=== PATIENT | male | born 1970 | race Caucasian/White ===

== ENCOUNTER 2019-07-19 19:56 | Inpatient (IN) | payer SELFPAY ==
[~2019-07-19] VITALS: Ht 190.5 cm; Wt 136.1 kg
--- NOTE | ~2019-07-19 | HEMODYNAMI ---
PATIENT:NNAMDI JUSTIN MEDICAL RECORD: [id number] : 72 LOCATION:[facility] D.2117 ADMISSION DATE: 07/20/19 Generatedon:07/21/20199:29 Patient name: NNAMDI JUSTIN Patient #: [id number] SSN: [id number] : 1970 Date of study: 07/21/2019 Page: Of Hemodynamic Procedure Report Patient Data Patient Demographics Procedure consent was obtained First Name: NNAMDI Gender: Male Last Name: NHAN : 1970 Middle Initial: AURORA Age: 49 year(s) Patient #: [id number] Race: SSN: [id number] Additional ID: [id number] Contact details [address]: [address] [place] [address] State: [place] City: [place] Zip code: [address] Past Medical History Allergies Allergen Reaction Date Comments Reported Penicillins 07/21/2019 Admission Admission Data Admission Date: 07/20/2019 Admission Time: 12:51 Arrival Date: 07/21/2019 Arrival Time: 0:00 Room #: D.2117 Height (in.): 75 BSA: 2.61 (m2) Height (cm.): 190.5 BMI: 37.48 (kg/m2) Weight (lbs.): 299.83 Weight (kg.): 136 Lab Results Lab Result Date: 07/21/2019 Lab Result Time: 0:00 Biochemistry Name Units Result Min Max BUN mg/dl 24 --(----)-* 7 18 Creatinine mg/dl 1.2 --(---*)-- 0.6 1.3 eGFR ml/min 69 *-(----)-- 90 120 NONAFRICAN CBC Name Units Result Min Max Hematocrit % 44.6 --(*---)-- 42 54 Hemoglobin g/dl 15 --(-*--)-- 13.5 17.5 Procedure Procedure Types Cath Procedure Diagnostic Procedure LHC [facility] w/Coronaries Sedation Charges Moderate Sedation up to 30 minutes PCI Procedure Coronary Stent Coronary Stent Initial Hemochron ACT Test Procedure Description Procedure Date Procedure Date: 07/21/2019 Procedure Start Time: 8:51 Procedure End Time: 9:27 Procedure Staff Name Function Santiago Shi MD Performing Physician Sera Gayle RT Monitor Ashley Aguilar RT Monitor Lashay Perez RT Scrub Sheila Ortiz RN Nurse Hussain Abbott RT Kelp Cutter Procedure Data Cath Procedure Fluoroscopy Diagnostic fluoroscopy Total fluoroscopy Time: 9.4 time: 9.4 min min Diagnostic fluoroscopy Total fluoroscopy dose: dose: 1481 mGy 1481 mGy Contrast Material Contrast Material Type Amount (ml) Isovue 370 135 Entry Location Entry Primary Successful Side Size Upsize Upsize Entry Closure Mccord ccessful Closure Location (Fr) 1 (Fr) 2 (Fr) Remarks Device Remarks Radial Right 6 Fr Mechanical artery Short Compression Estimated blood loss: 10 ml Diagnostic catheters Device Type Used For End Catheter Placement DIAGNOSTIC [place] 110cm Procedure 5Fr catheter ([id number]) Procedure Complications No complications Procedure Medications Medication Administration Route Dosage Oxygen etCO2 Nasal cannula 2 l/min Lidocaine 2% added to field 20 Heparin Flush Bag added to field 2 bags (1000units/500ml NS) 0.9% NaCl I.V. 100 ml/hr Benadryl I.V. 50 mg Versed I.V. 2 mg Fentanyl I.V. 100 mcg Versed I.V. 2 mg Fentanyl I.V. 100 mcg Versed I.V. 2 mg Heparin Bolus I.V. 98576 units Versed I.V. 2 mg Plavix P.O. 300 mg Hemodynamics Rest BSA: 2.61 (m2) HGB: 15 (g/dl) O2 Consumption: Estimated: 327.69 (ml/min) O2 Cons umption indexed: Estimated:125.55 (ml/min/m) Heart Rate: 84 (bpm) Pressure Samples Time Site Value (mmHg) Purpose Heart Use Rate(bpm) 8:54 LV 147/49,23 Snapshot 112 8:54 AO 146/98(112) Pullback 79 8:54 LV 143/-4,1 Pullback 79 Gradients Valve Time Site 1 Site 2 Mean SEP/DFP Peak To Heart Use (mmHg) (sec/min) Peak Rate (mmHg) (bpm) Aortic 8:54 LV AO 0 5 0 79 143/-4,1 146/98(112) Calculations Valve P-P Mean Valve Index Valve Source Name Gradient Area Flow (cm2) Aortic 0 0 0 0 Snapshots Pre Cath Intra NCS Post Cath Vital Signs Time Heart Resp SPO2 etCO2 NIBP (mmHg) Rhythm Pain Sedation Rate (ipm) (%) (mmHg) Status Level (bpm) 8:00:42 78 14 94 22.6 Measuring NSR 0 (11) 10(A) , No pain 8:01:48 84 16 93 17.3 195/109(144) NSR 0 (11) 10(A) , No pain 8:06:36 86 19 93 30.8 183/102(141) NSR 0 (11) 10(A) , No pain 8:11:21 84 20 94 33.1 189/110(127) NSR 0 (11) 10(A) , No pain 8:16:08 82 19 94 35.3 181/106(126) NSR 0 (11) 10(A) , No pain 8:20:46 84 13 92 20.3 183/94(137) NSR 0 (11) 10(A) , No pain 8:25:25 80 17 93 40.6 167/97(128) NSR 0 (11) 10(A) , No pain 8:30:01 80 17 94 38.4 175/91(130) NSR 0 (11) 10(A) , No pain 8:34:42 77 19 93 30.8 178/94(130) NSR 0 (11) 10(A) , No pain 8:39:23 87 21 94 13.5 167/97(135) NSR 0 (11) 10(A) , No pain 8:45:09 78 19 92 37.6 163/79(91) NSR 0 (11) 10(A) , No pain 8:49:43 81 11 93 39.9 158/99(129) NSR 0 (11) 10(A) , No pain 8:54:14 82 17 96 32.4 151/94(123) NSR 0 (11) 10(A) , No pain 8:58:42 84 18 94 30.1 146/95(124) NSR 0 (11) 10(A) , No pain 9:03:08 87 13 95 45.2 154/92(128) NSR 0 (11) 10(A) , No pain 9:07:37 86 17 94 30.1 169/104(124) NSR 0 (11) 10(A) , No pain 9:12:13 84 16 94 27.8 158/93(116) NSR 0 (11) 10(A) , No pain 9:16:45 89 26 95 30.1 164/95(115) NSR 0 (11) 10(A) , No pain 9:21:20 82 26 95 31.6 182/104(130) NSR 0 (11) 10(A) , No pain 9:26:02 81 15 95 33.9 176/100(124) NSR 0 (11) 10(A) , No pain Medications Time Medication Route Dose Verified Delivered Reason Notes Effectiveness by by 8:00:34 Benadryl I.V. 50 mg Santiago Buffie used for for Jose Guadalupe Ortiz RN procedure preop. 8:03:12 Oxygen etCO2 2 Santiago Buffie used for Nasal l/min Jose Guadalupe Ortiz RN procedure cannula 8:03:21 Lidocaine 2% added 20ml Santiago Santiago for local to vial Jose Guadalupe Shi MD anesthetic field 8:03:26 Heparin Flush added 2 bags Santiago Santiago used for Bag to Jose Guadalupe hSi MD procedure (1000units/500ml field NS) 8:03:34 0.9% NaCl I.V. 100 Santiago Buffie Per physician ml/hr Jose Guadalupe Ortiz RN 8:46:12 Versed I.V. 2 mg Santiago Buffie for sedation Jose Guadalupe Ortiz RN 8:46:20 Fentanyl I.V. 100 Santiago Buffie for sedation mcg Jose Guadalupe Ortiz RN 8:51:21 Versed I.V. 2 mg Santiago Buffie for sedation Jose Guadalupe Ortiz RN 8:51:25 Fentanyl I.V. 100 Santiago Buffie for sedation mcg Jose Guadalupe Ortiz RN 8:55:25 Versed I.V. 2 mg Santiago Buffie for sedation Jose Guadalupe Ortiz RN 9:00:42 Heparin Bolus I.V. 10,000 Santiago Buffie for verif ied units Jose Guadalupe Ortiz RN anticoagulation with dr shi 9:16:34 Versed I.V. 2 mg Santiago Buffie for sedation Jose Guadalupe Ortiz RN 9:22:31 Plavix P.O. 300 mg Santiago Ortiz RN antiplatelet therapy Procedure Log Time Note 18:40:47 DELAY DUE TO ASIST NOT ENGAGING. 18:40:47 DELAY DUE TO ASIST NOT ENGAGING. 18:40:47 LAST DOSE OF PLAVIX ON Sunday07-19-2019 18:40:47 Modified Matt's test Ulnar > 7 seconds. 7:37:29 Procedure Status Urgent Heart Cath (IP). 7:37:30 Time tracking: Regular hours (M-F 7:00 - 5:00) 7:37:34 Plan of Care:Hemodynamics will remain stable., Cardiac rhythm will remain stable., Comfort level will be maintained., Respiratory function will remain adequate., Patient/ family verbilizes understanding of procedure., Procedure tolerated without complication., Recovers from procedure without complications.. 7:37:36 Hussain ESCOBAR(R) sent for patient. Start room use. 7:37:37 Signed procedure consent form obtained from patient. 7:37:39 H&P Date Dictated: 07/21/2019 New H&P dictated by physician.. 7:38:21 Patient Weight : 299.83 lbs 7:40:02 Patient Height : 75 inches 7:40:18 Patient allergic to Penicillins 7:42:40 Risk of Mortality: .1 7:42:42 Risk of blood transfusion: .1 7:42:44 Risk of DAT: .1 7:42:52 Stress Test: no; N/A NSTEMI 7:43:14 Lab Result : BUN 24 mg/dl 7:43:14 Lab Result : eGFR NONAFRICAN 69 ml/min 7:43:14 Lab Result : Creatinine 1.2 mg/dl 7:43:14 Lab Result : Hemoglobin 15 g/dl 7:43:14 Lab Result : Hematocrit 44.6 % 7:44:32 Patient received from Med II to CCL 1 Alert and oriented. Tansferred to table in Supine position. 7:44:33 Warm blankets applied, and vargas hugger turned on for patient comfort. 7:44:33 Correct patient and procedure confirmed by team. 7:44:34 ECG and BP/O2 sat monitors applied to patient. 7:49:23 Pre-procedure instructions explained to patient. 7:49:24 Pre-op teaching completed and patient verbalized understanding. 7:50:27 Family in patients room. 7:50:33 Patient NPO since Midnight. 7:50:39 Is the patient allergic to Iodine/contrast media? No. 7:50:43 Was the patient premedicated? No 7:50:49 Is patient on blood thinner?Yes 7:52:07 Patient diabetic? Yes. 7:52:13 If diabetic: On Metformin? No 7:52:20 ----Pre-sedation anethsthesia assessment.---- 7:52:25 Previous problem with sedation/anesthesia? No ? 7:52:30 Snore? Yes 7:53:06 Was the patient premedicated? Yes 7:53:19 Sleep apnea? No 7:53:24 Deviated septum? No 7:53:37 Opens mouth fully? Yes 7:53:45 Sticks out tongue? Yes 7:53:52 Airway obstruction? No ? 7:53:56 Dentures? No ? 7:53:57 - 7:54:43 IV patent on arrival in right antecubital with 0.9% NaCl at [facility]. 7:55:53 Pre procedure: right dorsailis pedis pulse 1+ Palpable, but thready & weak; easily obliterated 7:56:20 Lab results completed and on chart. 7:56:27 Right Radial & Right Groin area was prepped with chlora-prep and draped in sterile fashion 7:56:30 Alarms reviewed by R. N. 7:56:30 Sharps counted by scrub and verified by R.N. 7:56:38 Physician arrived 7:58:53 Vital chart was started 8:00:34 Benadryl 50 mg I.V. was administered by Sheila Ortiz RN; used for procedure; for preop. Verbal order read back and verified. 8:02:32 Baseline sample Acquired. 8:02:44 Rhythm: sinus rhythm 8:02:47 Full Disclosure recording started 8:03:12 Oxygen 2 l/min etCO2 Nasal cannula was administered by Sheila Ortiz RN; used for procedure; Verbal order read back and verified. 8:03:21 Lidocaine 2% 20ml vial added to field was administered by Santiago Shi MD ; for local anesthetic; Verbal order read back and verified. 8:03:26 Heparin Flush Bag (1000units/500ml NS) 2 bags added to field was administered by Santiago Shi MD; used for procedure; Verbal order read back and verified. 8:03:34 0.9% NaCl 100 ml/hr I.V. was administered by Sheila Ortiz RN; Per physician; Verbal order read back and verified. 8:05:30 ACC Patient presents with Stable Angina CCS Anginal Class 3--Marked limitation of physical activity, angina occurs with ordinary activity.. 8:05:37 ACCPatient has been prescribed/administered the following anti-anginal medication within the last 2 weeks: None 8:15:07 Arrival Date: 07/21/2019 12:00:00 AM 8:18:50 Zero performed for pressure channel P1 8:19:06 Zero performed for pressure channel P1 8:19:33 Zero performed for pressure channel P1 8:20:06 Zero performed for pressure channel P1 8:44:16 Use device set Radial Dx or PCI 8:44:18 ACIST Syringe (42168) opened to sterile field. 8:44:19 Medline Cath Pack ([id number]) opened to sterile field. 8:44:20 Bag Decanter (2002) opened to sterile field. 8:44:21 ACIST Hand Control (23446) opened to sterile field. 8:44:22 ACIST Manifold (05273) opened to sterile field. 8:44:22 Tegaderm 4 x 4 (1626W) opened to sterile field. 8:44:23 MBrace Wrist Support (193897457) opened to sterile field. 8:44:24 NEEDLE Cook 21G 4cm Radial (U20205) opened to sterile field. 8:44:27 EMERALD Guide Wire (502-832) opened to sterile field. 8:44:28 SHEATH 6FR RAIN (8980323) opened to sterile field. 8:45:14 --------ALL STOP TIME OUT------ 8:45:16 Final Timeout: patient, procedure, and site verified with staff and physician. All members of the team are in agreement. 8:45:20 Right Radial & Right Groin site verified by team. 8:45:25 Fire Safety Assessment: A--An alcohol-based skin anteseptic being used preoperatively., C--Open oxygen or nitrous oxide is being used., D--An ESU, laser, or fiber-optic light is being used. 8:45:30 Physical assessment completed. ASA score P 2 - A patient with mild systemic disease as per Santiago Shi MD. 8:45:37 2) 60-89 Mildly reduced kidney function, and other findings (as for stage 1) point to kidney disease. 8:45:44 Maximum allowable contrast dose (3.7 X eGFR X 0.75)191 ml. 8:45:50 Sedation plan: IV Moderate Sedation Medication:Versed, Fentanyl 8:46:12 Versed 2 mg I.V. was administered by Sheila Ortiz RN; for sedation; Verbal order read back and verified. 8:46:20 Fentanyl 100 mcg I.V. was administered by Sheila Ortiz RN; for sedation; Verbal order read back and verified. 8:49:45 Zero performed for pressure channel P1 8:49:52 Procedure started. 8:51:21 Versed 2 mg I.V. was administered by Sheila Ortiz RN; for sedation; Verbal order read back and verified. 8:51:25 Fentanyl 100 mcg I.V. was administered by Sheila Ortiz RN; for sedation; Verbal order read back and verified. 8:51:50 Local anesthetic to right radial artery with Lidocaine 2% by Santiago Shi MD.INITIAL ACCESS ONLY 8:52:36 A 6 Fr Short sheath was inserted into the Right Radial artery 8:52:47 A DIAGNOSTIC [place] 110cm 5Fr catheter (094263) was advanced over the wire and used for Procedure. 8:53:55 LV gram done using MARRERO 8:54:36 EF : 60 % 8:54:50 LV hemodynamics recorded. 8:54:53 Injector settings: Ml/sec: 5, Volume: 15, 8:55:04 LCA angiography performed. 8:55:11 Injector settings: Ml/sec: 3, Volume: 6, 8:55:25 Versed 2 mg I.V. was administered by Sheila Ortiz RN; for sedation; Verbal order read back and verified. 8:56:48 RCA angiography performed. 8:57:08 Injector settings: Ml/sec: 3, Volume: 6, 8:57:25 ACCDominant side:Right 8:57:59 Catheter exchanged over wire. 8:58:04 Proceeding to intervention. 8:58:16 TUBING High Pressure Extension Tubing (Jose Guadalupe) ([id number]) opened to sterile field. 8:59:51 INFLATOR Merit BasixCompak (YR0813) opened to sterile field. 9:00:11 GUIDE 6FR XBLAD 3.5 catheter ([id number]) opened to sterile field. 9:00:42 Heparin Bolus 10,000 units I.V. was administered by Sheila Ortiz RN; for anticoagulation; verified with dr shi Verbal order read back and verified. 9:00:54 ASAHI 190 CM WIRE USED. 9:01:21 6 Fr XBLAD3.5 guide catheter was inserted over the wire 9:02:48 ACC Pre-intervention ARVIND Flow is 3. 9:04:48 Guide catheter removed. 9:05:01 GUIDE 6Fr [place] 4.0 catheter (456588) opened to sterile field. 9:05:25 6 Fr TIGER 4.0 guide catheter was inserted over the wire 9:08:08 [facility] wire advanced. 9:10:27 Pre PCI Site: [place] mCirc has 90% stenosis. 9:12:24 Wire advanced across lesion. 9:16:08 The NAJMA OTW 3.0 x 12 stent ([id number]) was advanced then removed because of failure to cross lesion 9:16:34 Versed 2 mg I.V. was administered by Sheila Ortiz RN; for sedation; Verbal order read back and verified. 9:16:51 Place stent Inflation Number: 1 A NAJMA RX 3.0 x 12 stent ([id number]) was prepped and advanced across the Mid CX . The stent was deployed at 13 LIBBY for 0:00 (min:sec) . 9:17:14 Stent catheter was removed intact over wire. 9:17:21 ACC Post-intervention ARVIND Flow is 3. 9:17:25 Wire removed. 9:17:27 Guide catheter removed. 9:17:41 Post PCI Site: [place] mCirc has 0% stenosis. 9:19:14 ZEPHYR LARGE TR BAND (544334) opened to sterile field. 9:19:25 Procedure ended.(Physican Out) 9:19:36 Sheath removed intact; hemostasis achieved with Mechanical Compression to the Right Radial artery. 9:19:51 Contrast amount:Isovue 370 135ml. 9:20:02 Fluoroscopy time 09.40 minutes. 9:20:11 Fluoroscopy dose: 1481 mGy 9:20:11 Flurop Dose total: 1481 9:20:24 Dose Area Product 31859 mGy/cm. 9:20:28 Maximum allowable dose exceeded? No. 9:20:30 Sharps counted by scrub and verified by R.N. 9:22:31 Plavix 300 mg P.O. was administered by Sheila Ortiz RN; for antiplatelet therapy; Verbal order read back and verified. 9:22:33 Garner band inflated with 10cc of air. 9:22:36 Insertion/operative site no bleeding no hematoma. 9:22:42 Post Procedure Pulses reassessed and unchanged 9:22:48 Post-procedure physical assessment completed. ASA score P 2 - A patient with mild systemic disease as per Santiago Shi MD. 9:22:55 Post procedure rhythm: unchanged. 9:22:59 Estimated blood loss: 10 ml 9:23:01 Post procedure instruction explained to patient.Patient verbalizes understanding. 9:23:02 Patient needs reinforcement of post procedure teaching. 9:23:49 Procedure type changed to Cath procedure, Diagnostic procedure, LHC, C w/Coronaries, Sedation Charges, Moderate Sedation up to 30 minutes, PCI procedure, Coronary Stent, Coronary Stent Initial, Hemochron ACT Test 9:27:01 ACT drawn and resulted at OUT OF RANGE seconds. (normal therapeutic range 180-240 seconds). 9:27:12 Procedure and supply charges have been captured, reviewed, submitted an d are correct. 9:27:20 Procedure Complication : No complications 9:27:23 Vital chart was stopped 9:27:26 [facility] Findings: MVD- PCI performed (see procedure note) 9:27:32 Operative report dictated upon procedure completion. 9:27:33 See physician's report for complete and final results. 9:27:37 Report given to [facility]. 9:27:43 Patient transfered to [facility] with Bed. 9:27:47 Procedure ended. 9:27:47 Full Disclosure recording stopped 9:28:00 ACC-PCI Only Patient was given prescriptions, or instructed by Santiago Shi MD to start/continue the following medications upon discharge: Plavix 9:28:02 End room use (Document Last) Intervention Summary Intervention Notes Time ActionType Lesion and Equipment Used Action# Pressure Duration Attributes 9:16:08 Discard NAJMA OTW 3.0 x Stent 12 stent ([id number]) 9:16:51 Place stent Mid CX NAJMA RX 3.0 x 1 13 00:00 12 stent ([id number]) Device Usage Item Name Manufacture Quantity Catalog Hospital Part Current [facility] Lot# / Number Charge Number Stock Stock Serial# Code ACIST Syringe Acist 1 58441 786089 596058 589524 20 (33445) Medical Systems Inc Medline Cath Medline 1 [id number] 533804 88371 934352 5 Pack ([id number]) Bag Decanter Microtek 1 2001S 415864 86712 748711 5 (2001S) Medical Inc. ACIST Hand Acist 1 32029 997523 389488 869060 5 Control Medical (59135) Systems Inc ACIST Manifold Acist 1 00598 670672 541753 808905 5 (42430) Medical Systems Inc Tegaderm 4 x 4 3M 1 1626W 466330 833283 811876 5 (1626W) MBrace Wrist Advanced 1 140-0250-00 270575 81015 334626 5 Support Vascular (130269505) Dynamics NEEDLE Cook Cook Medical 1 Z53134 440904 993475 546035 5 21G 4cm Radial (D37269) EMERALD Guide Cardinal 1 502-455 031647 358239 903832 5 Wire (502-455) Health SHEATH 6FR Cardinal 1 1568384 664799 8384817 043439 5 RAIN (3697358) Health DIAGNOSTIC Terumo 1 405023 140634 255206 689907 5 [place] 110cm 5Fr catheter (953638) TUBING High Merit 1 [id number] 813243 23226 473220 10 Pressure Medical Extension Tubing (Shi) ([id number]) INFLATOR Merit Merit 1 VU4664 809211 461697 856306 15 Neurotron BiotechnologyhiBevyUp Medical (RQ1999) GUIDE 6FR Cardinal 1 [id number] 971151 167317 764845 10 XBLAD 3.5 Health catheter (39186268) GUIDE 6Fr Terumo 1 85-5423 241173 601350 900908 1 [place] 4.0 catheter (203398) NAJMA OTW 3.0 x Medtronic 1 [id number] 594276 6391787 515058 5 [id number] 12 stent ([id number]) NAJMA RX 3.0 x Medtronic 1 [id number] 895214 4808020 224294 5 [id number] 12 stent ([id number]) ZEPHYR LARGE Cardinal 1 580900 181260 0718463 613943 5 [facility] Toolwi (226477) Signature Audit [place] Stage Time Signature Unsigned Intra-Procedure 07/21/2019 Sera 9:28:48 AM [place] RT(R) (CV) Intra-Procedure 07/21/2019 Sheila Ortiz RN 9:29:17 AM Intra-Procedure 07/21/2019 Santiago Shi MD 9:29:47 AM [facility] [address] [place] [address]
[2019-07-19] MEDS ORDERED: LOPRESSOR25 MG PO (20:06)
[2019-07-19] MEDS ORDERED: PRAVACHOL40 MG PO (20:06)
[2019-07-19] MEDS ORDERED: COZAAR25 MG PO (20:06)
[2019-07-19] MEDS ORDERED: HYDROCHLOROTHIA25 MG PO (20:06)
[2019-07-19 20:12] VITALS: BP 161/101
[2019-07-19 20:58] LABS: BASOPHILS 0.2 % (0-2); EOSINOPHILS 3.5 % (0-7); HEMATOCRIT 44.7 % (42.0-54.0); HEMOGLOBIN 15.1 g/dL (13.5-17.5); IMMATURE GRANULOCYTES 0.2 % (0-5); LYMPHOCYTES 21.5 % (15-50); MCH 30.7 pg (26.0-34.0); MCHC 33.8 g/dL (31.0-37.0); MCV 90.9 fL (80.0-100.0); MEAN PLATELET VOLUME 9.4 fL (7.4-10.4); MONOCYTES 6.9 % (2-11); NEUTROPHILS 67.7 % (40-80); PLATELET COUNT 272 10x3/uL (130-400); RBC 4.92 10x6/uL (4.20-6.10); RDW 13.7 % (11.5-14.5); WBC 8.2 10x3/uL (4.8-10.8)
[2019-07-19 21:00] VITALS: BP 149/81
[2019-07-19 21:18] VITALS: BP 167/83
--- NOTE | 2019-07-19 21:18 | NUR ---
PT SITTING UP IN BED. PT FAMILY AT BEDSIDE. NO S/S OF ACUTE DISTRESS NOTED.
[2019-07-19 21:23] LABS: CALC OSMOLALITY 282 mosm/kg (275-300); CALCIUM 9.5 mg/dL (8.5-10.1); CARBON DIOXIDE 26.5 mmol/L (21.0-32.0); CHLORIDE - SERUM 102 mmol/L (98-107); CREATININE - SERUM 0.9 mg/dL (0.6-1.3); GLUCOSE 98 mg/dL (74-106); INR 1.03 (0.85-1.17); POTASSIUM - SERUM 3.5 mmol/L (3.5-5.1); SODIUM 141 mmol/L (136-145); UREA NITROGEN 19 mg/dL (7-18); eGFR NON AFRICAN AMERICAN > 90 mL/min (90-120)
[2019-07-19 21:24] LABS: APTT 37.6 SECONDS (22.8-39.4)
[2019-07-19 21:41] LABS: ALKALINE PHOSPHATASE 51 U/L (46-116); ALT (SGPT) 45 U/L (10-68); BILIRUBIN - TOTAL 0.55 mg/dL (0.2-1.3); CKMB 1.6 U/L (0.0-3.6); CREATINE KINASE 147 UL (21-232); PROTEIN - SERUM 7.7 g/dL (6.4-8.2)
[2019-07-19 21:43] LABS: TROPONIN-I 0.065 ng/mL (0.000-0.060)
--- NOTE | 2019-07-19 21:44 | NUR ---
ELEVATED TROPONIN 0.065 CALLED FROM LAB, NAZARIO EUCEDA NOTIFIED.
[2019-07-19 22:00] VITALS: BP 166/90
--- NOTE | 2019-07-19 22:10 | NUR ---
PT SITTING UP ON BED. PT AND FAMILY UPDATED ON POC.
[2019-07-19 22:30] VITALS: BP 162/89
[2019-07-19 23:20] VITALS: BP 168/94; BMI 39.4
--- NOTE | 2019-07-19 23:53 | NUR ---
ADMIT TO ROOM 2117 FROM ER VIA WHEELCHAIR. ALERT/ORIENTED. NO CURRENT CHEST PAIN. ADMISSION ASSESSMENT AND HISTORY COMPLETED. HOME MEDS REVIEWED AND UPDATED. PT TEACHING ON NPO AFTER EATING A SANDWICH TRAY.
[2019-07-20 00:21] VITALS: BP 168/94
[2019-07-20 04:49] VITALS: BP 167/74
[2019-07-20 06:16] LABS: BASOPHILS 0.2 % (0-2); HEMATOCRIT 42.3 % (42.0-54.0); HEMOGLOBIN 14.1 g/dL (13.5-17.5); IMMATURE GRANULOCYTES 0.2 % (0-5); LYMPHOCYTES 29.9 % (15-50); MCH 30.3 pg (26.0-34.0); MCHC 33.3 g/dL (31.0-37.0); MEAN PLATELET VOLUME 9.5 fL (7.4-10.4); MONOCYTES 9.7 % (2-11); PLATELET COUNT 259 10x3/uL (130-400); RBC 4.65 10x6/uL (4.20-6.10); RDW 13.8 % (11.5-14.5); WBC 8.1 10x3/uL (4.8-10.8)
[2019-07-20 07:13] LABS: ANION GAP 13.3 mmol/L (8-16); CALCIUM 9.2 mg/dL (8.5-10.1); CREATININE - SERUM 1.2 mg/dL (0.6-1.3); POTASSIUM - SERUM 3.3 mmol/L (3.5-5.1)
[2019-07-20 07:14] LABS: TROPONIN-I 0.065 ng/mL (0.000-0.060)
[2019-07-20 07:53] VITALS: BP 178/89
[2019-07-20 10:04] LABS: CALCIUM 8.9 mg/dL (8.5-10.1); CARBON DIOXIDE 28.4 mmol/L (21.0-32.0); CHOL - HDL RATIO 5.8 ratio (2.3-4.9); CREATININE - SERUM 1.2 mg/dL (0.6-1.3); LDL-HDL RATIO 3.1 ratio (1.5-3.5); POTASSIUM - SERUM 3.4 mmol/L (3.5-5.1); TROPONIN-I 0.041 ng/mL (0.000-0.060)
[2019-07-20 11:28] VITALS: BP 154/79
--- NOTE | 2019-07-20 12:36 | NUR ---
C/O C/P. YIN WANG PAGED. NEW ORDERS GIVEN.
--- NOTE | 2019-07-20 13:55 | NUR ---
CONSENTS SIGNED FOR [facility]. WILL CONT. PLAN OF CARE.
--- NOTE | 2019-07-20 14:57 | NUR ---
ECHO COMPLETED AT BS.
[2019-07-20 15:32] VITALS: BP 165/80
--- NOTE | 2019-07-20 19:30 | NUR ---
REPORT AND INITIAL ROUNDS COMPLETED. PT UP IN BEDSIDE CHAIR. ALERT/ORIENTED. PATENT IV TO RIGHT A/C. SR PER TELEMETRY. PT TEACHING ON NPO AFTER MIDNIGHT AND AM PREP WITH HIBICLENS BEFORE SCHEDULED. CPOC. AT BEDSIDE.
[2019-07-20 20:30] VITALS: BP 167/85
[2019-07-21 00:45] VITALS: BP 133/52
[2019-07-21 04:25] VITALS: BP 171/87
[2019-07-21 05:04] LABS: BASOPHILS 0.2 % (0-2); EOSINOPHILS 3.4 % (0-7); HEMATOCRIT 44.6 % (42.0-54.0); IMMATURE GRANULOCYTES 0.4 % (0-5); MCH 30.9 pg (26.0-34.0); MCHC 33.6 g/dL (31.0-37.0); MCV 91.8 fL (80.0-100.0); MEAN PLATELET VOLUME 9.2 fL (7.4-10.4); MONOCYTES 9.3 % (2-11); NEUTROPHILS 60.7 % (40-80); PLATELET COUNT 289 10x3/uL (130-400); RBC 4.86 10x6/uL (4.20-6.10); RDW 13.7 % (11.5-14.5)
--- NOTE | 2019-07-21 05:08 | NUR ---
PT HAS BEEN NPO SINCE MIDNIGHT FOR AM HEART CATH. ALL PREP CARE HAS BEEN PROVIDED. CPOC.
[2019-07-21 05:14] LABS: WBC 10.5 10x3/uL (4.8-10.8)
[2019-07-21 05:21] LABS: ANION GAP 12.9 mmol/L (8-16); CALCIUM 9.1 mg/dL (8.5-10.1); CARBON DIOXIDE 28.7 mmol/L (21.0-32.0); CREATININE - SERUM 1.2 mg/dL (0.6-1.3); MAGNESIUM - SERUM 2.1 mg/dL (1.8-2.4); POTASSIUM - SERUM 3.6 mmol/L (3.5-5.1)
[2019-07-21 14:12] VITALS: Ht 190.5 cm; Wt 136.1 kg
[2019-07-21 14:55] VITALS: BP 167/96
[2019-07-21] MEDS ORDERED: PLAVIX75 MG PO (17:23)
[2019-07-21] MEDS ORDERED: BAYER CHEWABLE81 MG PO (17:31)
[2019-07-21 17:42] VITALS: BP 169/90
--- NOTE | 2019-07-22 08:02 | MORECARE ---
CASE MANAGEMENT DISCHARGE SUMMARY PATIENT: NNAMDI JUSTIN UNIT: [id number] ADM DATE: 07/20/19 AGE: 49 : 72 SEX: M ROOM/BED: D.2117 AUTHOR: SHEN HARVEY PHYSICIAN: REFERRING PHYSICIAN: ALEK ROMO MD DATE OF SERVICE: 07/22/19 Discharge Plan Patient Name: NNMADI JUSTIN [facility] [facility] 1970 Planned Disposition: Home Anticipated Discharge Date: 07/21/19 Discharge Date: 07/21/2019 Expected LOS: 1 Initial Reviewer: [email or web address] Initial Review Date: 07/22/2019 Generated: 07/22/19 9:02 am Patient Name: NNAMDI JUSTIN Page [phone] at 0802 All edits/amendments must be made on the electronic document DICTATION DATE: 07/22/19 08 PREPARING BOX TENDER: RENZO 07/22/19 08 RPT#: [id number] DC DATE:07/21/19 STATUS: DIS IN [facility] [address] [facility] [place] [address] END OF REPORT
== END 2019-07-21 18:30 | disposition home or self-care (01) | DRG 247 ==
LOC: D.ER 19:56 → OBSVTIME 22:08 → D.M2 22:08
PROVIDERS: Family Medicine; Internal Medicine Cardiovascular Disease; ADMIT Family Medicine; ATTEND Family Medicine
PROC: B2111ZZ Fluoroscopy of Multiple Coronary Arteries using Low Osmolar Contrast (ICD-10-PCS; 2019-07-21)
PROC: B2151ZZ Fluoroscopy of Left Heart using Low Osmolar Contrast (ICD-10-PCS; 2019-07-21)
PROC: 027034Z Dilation of Coronary Artery, One Artery with Drug-eluting Intraluminal Device, Percutaneous Approach (ICD-10-PCS; principal; 2019-07-21 07:37)
PROC: 4A023N7 Measurement of Cardiac Sampling and Pressure, Left Heart, Percutaneous Approach (ICD-10-PCS; 2019-07-21 07:37)
DX: I21.4 Non-ST elevation (NSTEMI) myocardial infarction (principal); I25.110 Atherosclerotic heart disease of native coronary artery with unstable angina pectoris; I10 Essential (primary) hypertension; E87.6 Hypokalemia; E66.01 Morbid (severe) obesity due to excess calories; Z68.39 Body mass index [BMI] 39.0-39.9, adult; E11.65 Type 2 diabetes mellitus with hyperglycemia; Z87.891 Personal history of nicotine dependence

== ENCOUNTER 2020-09-13 07:46 | Observation (INO) | payer BC ==
[~2020-09-13] VITALS: Ht 190.5 cm; Wt 145.5 kg
[2020-09-13] VITALS (8 sets, daily range): BP systolic 132–161; BP diastolic 65–83; Ht 190.5 cm; Wt 145.5 kg
[~2020-09-13 07:46] MED LIST: BAYER CHEWABLE81 MG PO; COZAAR25 MG PO; HYDROCHLOROTHIA25 MG PO; LOPRESSOR25 MG PO; PLAVIX75 MG PO; PRAVACHOL40 MG PO
[2020-09-13 08:58] LABS: BASOPHILS 0.5 % (0-2); EOSINOPHILS 3.4 % (0-7); HEMATOCRIT 38.9 % (42.0-54.0); HEMOGLOBIN 13.3 g/dL (13.5-17.5); IMMATURE GRANULOCYTES 0.3 % (0-5); LYMPHOCYTE ABS# 1.74 10x3/uL (1.32-3.57); LYMPHOCYTES 26.8 % (15-50); MCH 31.4 pg (26.0-34.0); MCHC 34.2 g/dL (31.0-37.0); MEAN PLATELET VOLUME 9.3 fL (7.4-10.4); MONOCYTES 9.1 % (2-11); NEUTROPHILS 59.9 % (40-80); PLATELET COUNT 267 10x3/uL (130-400); RBC 4.23 10x6/uL (4.20-6.10); RDW 13.1 % (11.5-14.5); WBC 6.5 10x3/uL (4.8-10.8)
[2020-09-13 09:02] LABS: CALC OSMOLALITY 275 mosm/kg (275-300); CALCIUM 8.9 mg/dL (8.5-10.1); CARBON DIOXIDE 26.1 mmol/L (21.0-32.0); CHLORIDE - SERUM 102 mmol/L (98-107); GLUCOSE 127 mg/dL (74-106); POTASSIUM - SERUM 3.3 mmol/L (3.5-5.1); SODIUM 136 mmol/L (136-145); UREA NITROGEN 19 mg/dL (7-18); eGFR NON AFRICAN AMERICAN 84 mL/min (90-120)
[2020-09-13 09:19] LABS: ALBUMIN 3.7 g/dL (3.4-5.0); ALKALINE PHOSPHATASE 43 U/L (30-120); ALT (SGPT) 56 U/L (10-68); BILIRUBIN - TOTAL 0.34 mg/dL (0.2-1.3); CKMB 1.6 U/L (0.0-3.6); CREATINE KINASE 191 UL (21-232); PROTEIN - SERUM 7.1 g/dL (6.4-8.2); TROPONIN-I < 0.017 ng/mL (0.000-0.060)
[2020-09-13 11:02] LABS: CKMB 1.6 U/L (0.0-3.6); CREATINE KINASE 188 UL (21-232); TROPONIN-I < 0.017 ng/mL (0.000-0.060)
--- NOTE | 2020-09-13 11:25 | NUR ---
PT AMBULATED TO RESTROOM TO VOID W/O DIFFICULTY. DENIES CP/DISCOMFORT AND NEEDS AT THIS TIME.
--- NOTE | 2020-09-13 13:35 | NUR ---
PROVIDED SANDWICH TRAY AND DIET SODA FOR LUNCH.
--- NOTE | 2020-09-13 13:52 | NUR ---
DR COCHRAN NOTIFIED OF CONSULT
== END 2020-09-13 17:03 | disposition home or self-care (01) ==
LOC: D.ER 07:46 → D.EDHOLD 09:02 → OBSVTIME 09:02 → D.EDHOLD 17:03
PROVIDERS: Family Medicine; ADMIT Emergency Medicine; ATTEND Emergency Medicine
DX: R07.9 Chest pain, unspecified (principal); I16.0 Hypertensive urgency; I25.10 Atherosclerotic heart disease of native coronary artery without angina pectoris; E87.6 Hypokalemia; E11.65 Type 2 diabetes mellitus with hyperglycemia; E78.5 Hyperlipidemia, unspecified